=== PATIENT | male | born 1945 | race African-American/Black ===

== ENCOUNTER → 2019-08-26 | Emergency (ER) | payer MEDICARE ==
[~2019-08-26] MED LIST: Fentanyl 100 MCG/2 ML VIAL ONE; Iopamidol 370 76% 100 ML VIAL ONE; Ondansetron PF 4 MG/2 ML Vial ONE; Piperacillin/Tazobactam 4.5 GM VIAL ONE
[2019-08-26 08:59] LABS: #Basophils 0.1 thou/uL (0.0-0.2); #Lymphocytes 1.2 thou/uL (1.20-3.40); #Monocytes 1.3 thou/uL (0.11-0.59); %Basophils 0.4 % (0.0-1.0); %Lymphocytes 6.4 % (21.0-51.0); %Monocytes 7.1 % (0.0-10.0); %Neutrophils 86.1 % (42.0-75.0); Mean Corpuscular HGB CONC 30.7 g/dL (32.0-36.0); Mean Corpuscular Hemoglobin 27.5 pg (27.0-31.0); Mean Corpuscular Volume 89.8 fL (78.0-98.0); Mean Platelet Volume 6.9 fL (7.4-10.4); Platelet Count 253 thou/uL (130-400); RBC Distribution Width 13.4 % (11.5-14.5); Red Blood Cell (RBC) Count 4.34 mill/uL (4.70-6.10); White Blood Cell (WBC) Count 18.6 thou/uL (4.8-10.8)
[2019-08-26 09:17] LABS: ALT (SGPT) Less than 7 U/L (8-55); AST (SGOT) 13 U/L (5-34); Albumin 3.9 g/dL (3.4-4.8); Alkaline Phosphatase 98 U/L (40-110); Anion Gap 15 mmol/L (10-20); BUN (Urea Nitrogen) 13 mg/dL (8.4-25.7); Bilirubin, Total 0.9 mg/dL (0.2-1.2); Calc. Creatinine Clearance 0 mL/min (70-130); Calcium 9.1 mg/dL (7.8-10.44); Carbon Dioxide 24 mmol/L (23-31); Chloride 103 mmol/L (98-107); Estimated GFR-MDRD 71; Globulin 3.7 g/dL (2.4-3.5); Glucose 128 mg/dL (83-110); Protein, Total 7.6 g/dL (5.8-8.1); Sodium 138 mmol/L (136-145)
[2019-08-26 09:30] LABS: Lipase Less than 4 U/L (8-78)
[2019-08-26 10:26] LABS: Bilirubin Negative (Negative); Blood, Urine Trace (Negative); Clarity Clear (Clear); Glucose, Urine (Dipstick) Negative (Negative); Leukocyte Negative (Negative); Nitrite Negative (Negative); Protein, Urine (Dipstick) Negative (Neg-Trace); Urobilinogen 0.2 mg/dL (Less than 2)
[2019-08-26 10:34] LABS: Bacteria/HPF Rare-Few HPF (None Seen); RBC/HPF 0-3 HPF (0-3); Squamous Epithelial None Seen HPF (0-3); WBC/HPF 0-3 HPF (0-3)
--- NOTE | 2019-08-26 12:24 | CT ---
CT ABDOMEN AND PELVIS WITH CONTRAST: DATE: 08/26/2019. FINDINGS: Spiral CT of the abdomen and pelvis was done for evaluation of periumbilical pain. The exam was done using IV contrast only by request. The appendix is mildly distended measuring 8-9 mm in width. It is fluid-filled. There is some sligh t enhancement of its escobar, but I really do not see any periappendiceal stranding. The base of the c ecum, however, is questionably thickened. The findings are presumptively positive for acute appendic itis. The lung bases are clear. The liver, spleen, pancreas, gallbladder, kidneys, and abdominal aorta adi wed no acute findings. The right adrenal gland appears normal. The left adrenal gland contains a 2. 1 cm mass with a hypodense center. A separate adrenal mass protocol CT would be needed to prove whet her it is an adenoma or not. The bowel shows no distention, but there is thickening of the cecum. This is presumably due to infla mmatory change as the appendix is dilated. It is worth noting that it is thicker than I usually seen in most cases of appendicitis, so there could be more extensive involvement going on here. No free air or free fluid was present. There is no sign of abscess. CT of the pelvis was remarkable for the right lower quadrant findings listed above. No free fluid wa s seen deep in the pelvis. There were no inflammatory changes in the rectosigmoid region. IMPRESSION: 1. Dilated (8-9 mm) fluid-filled appendix with slight wall enhancement, but not much periappendiceal stranding. Acute appendicitis is probable. 2. Thickening of the cecal wall. One would presume this is secondary to appendicitis, though it is curious that the thickening in the cecum is actually worse than inflammatory change seen around the a ppendix itself. I am obligated to call the possibility of acute appendicitis due to the width and fl uid-filled nature of the appendix, though there is a piece of me that wonders if the primary inflamma tory area is the cecum and the appendix has become secondarily involved. 3. A 2.1 cm left adrenal mass. As contrast has been given, it is difficult to assess whether it pos sesses the typical findings of an adenoma. This could be done electively in a separate scan with and without contrast. Findings discussed with Dr. Varela at 1001 on 08/26/2019. CODE CR POS: HOME
== END ==
LOC: BURERS 08:18
DX: K37 Unspecified appendicitis (principal)
CPT/HCPCS: 36415; 74177; 80053; 81003; 81015; 83690; 84484; 85025; 93005; 96361; 96374; 96375; 96376; J2405; J2543; J3010; Q9967

== ENCOUNTER 2020-07-19 15:28 | Emergency (ER) | payer MEDICARE ==
--- NOTE | 2020-07-19 21:37 | RAD ---
RIGHT SHOULDER THREE VIEWS: 07/19/20 No acute fracture was seen. There is some narrowing of the AC joint and a small bony fragment is seen beneath it suggesting that there may have been an old injury here. The visible adjacent ribs and sca pula appear intact. IMPRESSION: Possible old injury at the AC joint but no acute findings. Incidentally, degenerative changes on the right side of the cervical spine are noted. POS: HOME
== END 2020-07-19 17:00 | disposition home or self-care (01) ==
LOC: BURERS 15:28
DX: S43.401A Unspecified sprain of right shoulder joint, initial encounter (principal); W00.0XXA Fall on same level due to ice and snow, initial encounter